=== PATIENT | male | born 1965 | race Caucasian/White ===

== ENCOUNTER 2018-02-15 11:40 | Day surgery (SDC) | payer BC ==
[~2018-02-15] VITALS: Ht 182.9 cm; Wt 105.7 kg
[~2018-02-15 11:40] MED LIST: IBUPROFEN800 MG PO; NORCO 7.5/325 T1 TA1 PO; XANAX0.5 MG PO
[2018-02-15 13:26] VITALS: BP 109/68; Ht 182.9 cm; Wt 105.7 kg
== END 2018-02-15 17:50 | disposition home or self-care (01) ==
LOC: D.OPS 11:40 → D.PAN 13:30 → D.OPS 17:50
DX: T84.84XA Pain due to internal orthopedic prosthetic devices, implants and grafts, initial encounter (principal); L60.0 Ingrowing nail